=== PATIENT | male | born 1955 | race Caucasian/White ===

== ENCOUNTER 2018-10-20 17:05 | Emergency (ER) | payer SELFPAY ==
[2018-10-20 17:07] VITALS: BP 140/100; PULSE 80; RESP 16; TEMP 37; O2SAT 94; BMI 28.7
[2018-10-20 17:12] VITALS: O2SAT 97
--- NOTE | 2018-10-20 17:36 | EKG12_ITS ---
Test Reason : SOB Blood Pressure : / mmHG Vent. Rate : 073 BPM Atrial Rate : 073 BPM P-R Int : 172 ms QRS Dur : 092 ms QT Int : 388 ms P-R-T Axes : 039 092 052 degrees QTc Int : 427 ms Normal sinus rhythm Rightward axis Anteroseptal infarct , age undetermined Abnormal ECG Confirmed by KOSTAS TELLEZ, SARA ([id number]), editor farm journal SANDRA VOGT ([id number]) on 10/23/2018 8:32:32 AM Referred By: SINA/ALEK Confirmed By:SARA KENYON MD
--- NOTE | 2018-10-20 17:40 | RAD_ITS ---
STUDY: X-RAY CHEST REASON FOR EXAM: Male, 63 years old. Shortness of breath and cough x3 days TECHNIQUE: Single AP portable view of the chest. COMPARISON: None. FINDINGS: EKG leads overlie the chest. Stable appearance of a left subclavian pacemaker The lungs are clear and expanded. There is no demonstrated pleural abnormality. Normal size heart. Normal mediastinum and antony. Normal visualized pulmonary arteries. Normal visualized aortic arch and descending thoracic aorta. Normal visualized thoracic spine. Normal visualized ribs, clavicles, and shoulders. There is no demonstrated abnormality of the visualized soft tissue structures of the upper abdomen. RAD/Chest 1 View (Portable) IMPRESSION: No acute pulmonary process Electronically Signed: Favio Dubon MD at 18:08 EST , Service support ,
--- NOTE | 2018-10-20 17:54 | NURSING ---
NO OLD EKGS
[2018-10-20] MEDS: Ipratropium/Albuterol Sulfate 3 ML AMPUL.NEB INHALATION (18:05)
[2018-10-20 18:07] VITALS: PULSE 79; RESP 16; O2SAT 97
[2018-10-20 18:08] LABS: Absolute Lymphocyte Count 1.02 X10^3/ul (0.83-4.51); Absolute Neutrophil Count 2.7 X10^3/uL (2.0-7.7); Basophil# 0.01 X10^3/uL; Basophil% 0.2 % (0-1); Eosinophil# 0.02 X10^3/uL; Eosinophils% 0.5 % (0-5); Hematocrit 46.1 % (40-54); Hemoglobin 16.1 g/dl (13.0-16.5); Lymphocyte # 1.02 X10^3/ul (4.0); Lymphocyte % 23.1 % (19-41); Mean Corp Hgb Conc 34.9 g/gl (32-36); Mean Corpuscular Hgb 31.3 pg (27.0-32.0); Mean Corpuscular Volume 89.7 fL (80-94); Mean Platelet Vol. 9.4 fl (6.2-12.0); Monocyte# 0.62 X10^3/uL; Monocyte% 14.1 % (0-10); Neutrophil # 2.73 X10^3/uL (2.7-7.7); Neutrophil % 61.9 % (47-70); POSITIVE COUNT NO; POSITIVE DIFFERENTIAL NO; POSITIVE MORPHOLOGY NO; Platelet Count 127 K/mm3 (150-450); RBC Distribution Width CV 12.8 % (11.6-14.6); RBC Distribution Width SD 41.4 fl (35.1-43.9); Red Blood Count 5.14 M/mm3 (4.6-6.2); White Blood Count 4.4 K/mm3 (4.4-11.0)
[2018-10-20] MEDS: 0.9% Normal Saline 1,000 ML 150 ML IV (18:10)
[2018-10-20] MEDS: MethylPREDNISolone 125 MG/2 ML Vial IV (18:10)
[2018-10-20 18:17] VITALS: O2SAT 93
[2018-10-20 18:23] LABS: Anion Gap 7 (5-15); BUN 26 mg/dL (7-18); BUN/Creat Ratio 14.9 RATIO (10-20); Calcium,Total 8.2 mg/dL (8.5-10.1); Chloride 102 mmol/L (98-107); Creatinine, Serum 1.74 mg/dL (0.70-1.30); EST Glomerular Filtration Rate 42 mL/min (>60); Est Glom Filt Rate - Afr Amer 51 mL/min (>60); Estimated Creatinine Clearance 45.45 ml/min; Glucose 250 mg/dL (74-106); Potassium 4.4 mmol/L (3.5-5.1); Sodium Level 134 mmol/L (136-145)
[2018-10-20 18:29] LABS: Lactic Acid 1.6 mmol/L (0.4-2.0)
[2018-10-20 18:32] LABS: D-Dimer Quantitative (DVT/PE) < 0.27 FEU/ug/m (0.27-0.49)
--- NOTE | 2018-10-20 18:49 | ED.DCSUM_ITS ---
- ER Visit Summary Date of Service: 10/20/18 Chief Complaint: [Shortness of breath and concern for pneumonia] History of Present Illness: The patient is a 63 M [presents to the emergency department complaint of shortness of breath for about a week. Patient planes of a cough with green sputum. Patient denies any fevers. He denies any chest pain. He does describe some tightness in his chest. Patient states that he was seen in urgent care and referred to the ER for concern over pneumonia. Patient does complain of exertional dyspnea. Patient has a history of prior KS, COPD, diabetes, and peripheral vascular disease. Patient does have history of pacer and defibrillator placed. Patient denies any fevers. He denies any recent travel or surgery.] Physical Examination: [HEENT-PERRLA, EOMI. Cranial nerves II through XII grossly intact. TMs clear. Mucous membranes moist. No adenopathy. Cardiovascular-regular rate and rhythm without murmur or ectopy Lungs-minutes breath sounds bilaterally. Patient has diffuse expiratory wheezes noted. No accessory muscle use or retractions. Abdomen-normoactive bowel sounds, soft, nontender, no rebound or rigidity, no peritoneal signs. Extremities-intact ?4, normal range of motion, normal pulses, atraumatic] Test Results: [EKG obtained showed sinus rhythm with a ventricular rate of 73 bpm with old anterior septal infarct noted. CBC with differential showing a 4.4, hemoglobin 16, hematocrit 46, platelets 127. Chemistries unremarkable. T1 was 26 and creatinine 1.74. Troponin was 0.028. D-dimer was less than 0.27. Chest x-ray showed nothing acute.] Emergency Department Course and Treatment: [Patient was given a DuoNeb aerosol as well as Solu-Medrol 125 mill grams IV. Patient was given a dose of doxycycline.] Patient ambulated in the department and pulse ox did not drop below 92%. Clinically he is feeling much improved. Treatment Plan: [Patient will be given a prescription for prednisone, doxycycline, and dispensed an albuterol MDI.] Disposition: [Discharged home in stable condition. Patient advised to return if increasing shortness of breath or condition should worsen anyway.] Impression: [Asthmatic bronchitis/COPD exacerbation] This note was generated with [employer] dictation software. It may contain incorrect words, spelling, and punctuation that were not noted in review of the chart prior to signing ED Disposition - Plan for ED Patient: Referrals: Siddhartha Marmolejo DO [Primary Care Provider] -
[2018-10-20 19:02] VITALS: O2SAT 93
--- NOTE | 2018-10-20 19:03 | ED.DEP ---
ED Disposition - Plan for ED Patient: Instructions: ED COPD Flare, ED Bronchitis Asthmatic Prescriptions: Doxycycline 100 mg PO BID #20 cap Prednisone [Deltasone] 20 mg PO BID #10 tab Referrals: Siddhartha Marmolejo DO [Primary Care Provider] - 3-5 Days
[2018-10-20 19:10] VITALS: BP 144/98; PULSE 98; RESP 18; O2SAT 93
[2018-10-20] MEDS: Doxycycline 100 MG CAPSULE PO (19:14)
== END 2018-10-20 19:15 | disposition home or self-care (01) ==
LOC: ED 18:25
PROVIDERS: Emergency Provider Emergency Medicine; Family Provider Preventive Medicine Occupational Medicine; PCP Preventive Medicine Occupational Medicine
DX: J44.1 Chronic obstructive pulmonary disease with (acute) exacerbation (principal); E11.9 Type 2 diabetes mellitus without complications; I73.9 Peripheral vascular disease, unspecified; Z79.82 Long term (current) use of aspirin; I25.2 Old myocardial infarction; Z95.810 Presence of automatic (implantable) cardiac defibrillator
CPT/HCPCS: 71045; 80048; 83605; 84484; 85025; 85379; 87804; 93005; 94640; 96361; 96374; 99285; J7030; A4216

== ENCOUNTER 2021-06-24 23:13 | Emergency (ER) | payer MEDICARE, SELFPAY ==
[2021-06-24 23:15] VITALS: BP 103/67; PULSE 75; RESP 18; TEMP 36.6; O2SAT 98; BMI 28.0
--- NOTE | 2021-06-24 23:25 | RAD_ITS ---
STUDY: X-RAY CHEST REASON FOR EXAM: Male, 66 years old. syncope TECHNIQUE: AP portable COMPARISON: 10/20/2018 FINDINGS: AICD is present from a left subclavian approach. The lungs are clear and expanded. There is no demonstrated pleural abnormality. Normal size heart. Normal mediastinum and antony. Normal visualized pulmonary arteries. Normal visualized aortic arch and descending thoracic aorta. Normal visualized thoracic spine. Normal visualized ribs, clavicles, and shoulders. There is no demonstrated abnormality of the visualized soft tissue structures of the upper abdomen. RAD/Chest 1 View (Portable) IMPRESSION: Negative x-ray examination of the chest. No interval change. Electronically Signed: Bret Francis MD at 0:08 EDT Tel , Service support ,
--- NOTE | 2021-06-24 23:25 | EKG12_ITS ---
Test Reason : SYNCOPE Blood Pressure : / mmHG Vent. Rate : 069 BPM Atrial Rate : 069 BPM P-R Int : 230 ms QRS Dur : 100 ms QT Int : 402 ms P-R-T Axes : 021 073 076 degrees QTc Int : 430 ms Sinus rhythm with 1st degree A-V block Anteroseptal infarct , age undetermined Abnormal ECG Confirmed by KOSTAS TELLEZ, SARA ([id number]), tape editor PATI ZUÑIGA ([id number]) on 06/26/2021 9:22:05 AM Referred By: WILMA Confirmed By:SARA KENYON MD
--- NOTE | 2021-06-24 23:27 | EX.ED.DYSGE1 ---
HPI History of Present Illness Chief Complaint: Syncope Narrative Narrative: 66-year-old male presenting with an episode of near syncope. Patient states that he was watching a football game and had a couple of beers. He states he was sitting for about 45 minutes in a chair. He stood up and started to feel lightheaded. He became off balance and fell into a chair. He says he urinated on himself. He denies head injury or LOC. Patient denies any symptoms prior to this episode. He has not had chest pain or shortness of breath. He denies fever or chills. He had been otherwise eating and drinking normally. He states that he is active and tries to walk a lot. Patient has history of hypertension, [place], hyperlipidemia. He is on Coumadin and denies black or bloody stools. [facility] Medical History STEMI (ST elevation myocardial infarction) Home Medications aspirin 81 mg PO DAILY@0800 10/20/18 [History Last Taken Unknown] allopurinol 100 mg PO DAILY 06/24/21 [History Last Taken Unknown] atorvastatin 80 mg PO DAILY 06/24/21 [History Last Taken Unknown] dulaglutide [Trulicity] 1.5 mg SUBCUT QWEEK 06/24/21 [History Last Taken Unknown] gabapentin 600 mg PO BID 06/24/21 [History Last Taken Unknown] metoprolol succinate 25 mg PO DAILY 06/24/21 [History Last Taken Unknown] warfarin 2.5 mg PO DAILY 06/24/21 [History Last Taken Unknown] Allergy/AdvReac Type Severity Reaction Status Date / Time No Known Allergies Allergy Verified 06/24/21 23:17 Social History Smoking Status: Former smoker ROS ROS ED Constitutional Constitutional ED: Denies chills or fever(s) Eyes Eyes: Denies blurry vision or change in vision ENT ENT ED: Denies rhinorrhea or sore throat Cardiovascular Cardiovascular: Reports other Details: Near syncope ; Denies chest pain or palpitations Respiratory/Chest Respiratory/Chest: Denies cough or dyspnea Gastrointestinal Gastrointestinal: Denies abdominal pain or nausea Genitourinary Genitourinary ED: Denies dysuria or hematuria Musculoskeletal Musculoskeletal: Denies arthralgias, back pain, myalgias or neck pain Integumentary Denies Abrasions or rash Neurologic Neurologic: Denies headache(s) or paresthesias EXAM Physical Exam Const Vital Signs: 06/24/21 23:15 06/24/21 23:22 06/24/21 23:31 Temperature 97.8 F Temperature Source Temporal Pulse Rate 75 Pulse Rate [Lying] Pulse Rate [Sitting] Pulse Rate [Standing] Respiratory Rate 18 Respiratory Pattern Normal Blood Pressure 103/67 Blood Pressure [Lying] Blood Pressure [Sitting] Blood Pressure [Standing] Blood Pressure Mean 79 Blood Pressure Mean [Lying] Blood Pressure Mean [Sitting] Blood Pressure Mean [Standing] Pulse Ox 98 94 Oxygen Delivery Method Room Air 06/24/21 23:59 Temperature Temperature Source Pulse Rate Pulse Rate [Lying] 71 Pulse Rate [Sitting] 74 Pulse Rate [Standing] 76 Respiratory Rate Respiratory Pattern Blood Pressure Blood Pressure [Lying] 92/61 Blood Pressure [Sitting] 102/65 Blood Pressure [Standing] 99/65 Blood Pressure Mean Blood Pressure Mean [Lying] 71 Blood Pressure Mean [Sitting] 77 Blood Pressure Mean [Standing] 76 Pulse Ox Oxygen Delivery Method Positive well nourished General Appearance ED: NAD; Negative for pallor HEENT Reports moist mucous membranes Negative for trauma Eyes PERRL and EOMs intact bilaterally Chest Wall inspection of chest normal and palpation of chest normal Resp normal respiratory effort and clear to auscultation bilaterally Cardio regular rate and regular rhythm GI normal to inspection, nondistended, normoactive bowel sounds Extremity normal to inspection General Extremety ED: Negative for edema or tenderness General Extremity: Negative for edema Neuro oriented x3, CN's II-XII intact bilaterally and no sensory deficits noted Sensorium / Orientation: alert Motor Exam: strength 5/5 throughout Psych mental status grossly normal Skin General Skin Exam: Negative for jaundice or pallor MDM MDM MDM Narrative Medical decision making narrative: Patient presenting with near syncopal episode. He is alert and awake here. He did not lose consciousness completely but did lose his bladder. He has not had this symptom before. He does state that he had an episode of syncope a couple years ago and was not evaluated. Patient's EKG on my interpretation shows a sinus rhythm with first-degree AV block without sign of ischemic change at a rate of 69 bpm. Chest x-ray shows no acute cardiopulmonary process and the radiologist does agree. Patient has no focal neurologic deficits or lateralizing signs or symptoms I do not believe needs a head CT. In addition to this he did not hit his head. CBC shows his white blood cell count is 5.6, he will 14.4, hematocrit 41.6, platelets 155. INR is therapeutic at 2.5. Creatinine is elevated at 2.32 with a baseline of 1.74 however this was in October 2018. Troponin is negative.Patient is not orthostatic. Patient was given a liter of IV fluids. He feels well at this point and he is ambulatory. I discussed the case with Dr. Jean his primary care physician and he wants him to call the office to make an appointment for follow-up on his kidney function. I did ask him if he wants me to have him hold his Toprol as his blood pressure is on the lower side here today but he does not want to hold it. He will see him in office. Patient was counseled to hydrate well. If he has new or worsening symptoms of concern he should return to the ED for repeat evaluation. Impression: 1. Near syncope 2. Acute kidney injury 3. Dehydration Lab Data Attestation: I reviewed the patient's lab results. Labs: Laboratory Results - last 24 hr 06/24/21 06/24/21 06/24/21 23:24 23:24 23:24 WBC 5.6 RBC 4.58 L Hgb 14.4 Hct 41.6 MCV 90.8 MCH 31.4 MCHC 34.6 RDW Std Deviation 45.3 H RDW Coeff of Halina 13.7 Plt Count 155 MPV 9.7 Immature Gran % (Auto) 0.400 Neut % (Auto) 60.6 Lymph % (Auto) 23.9 Dougherty % (Auto) 11.1 H Eos % (Auto) 3.6 Baso % (Auto) 0.4 Absolute Neuts (auto) 3.4 Absolute Lymphs (auto) 1.33 Nucleated RBC % 0 PT 26.2 H INR 2.5 Sodium 138 Potassium 3.6 Chloride 104 Carbon Dioxide 24.0 Anion Gap 10 BUN 51 H Creatinine 2.32 H Estim Creat Clear Calc 32.78 Est GFR (MDRD) Af Amer 37 L Est GFR (MDRD) Non-Af 30 L BUN/Creatinine Ratio 22.0 H Glucose 197 H Calcium 8.8 Troponin I High Sens 15 Ethyl Alcohol 06/24/21 23:24 WBC RBC Hgb Hct MCV MCH MCHC RDW Std Deviation RDW Coeff of Halina Plt Count MPV Immature Gran % (Auto) Neut % (Auto) Lymph % (Auto) Dougherty % (Auto) Eos % (Auto) Baso % (Auto) Absolute Neuts (auto) Absolute Lymphs (auto) Nucleated RBC % PT INR Sodium Potassium Chloride Carbon Dioxide Anion Gap BUN Creatinine Estim Creat Clear Calc Est GFR (MDRD) Af Amer Est GFR (MDRD) Non-Af BUN/Creatinine Ratio Glucose Calcium Troponin I High Sens Ethyl Alcohol < 3.0 Radiography Diagnostic Testing: Clinical Impression(s) from Imaging Studies Chest X-Ray 06/24/21 23:25 IMPRESSION: Negative x-ray examination of the chest. No interval change. Electronically Signed: Bret Francis MD at 0:08 EDT Tel , Service support , Discharge Plan Triage Chief Complaint: Syncope ED Provider: Bola Ang Dx/Rx/DC Orders Instructions: ED Dehydration (Adult), ED Near-Fainting, Uncertain Cause Prescriptions: No Action aspirin 81 MG tablet,chewable 81 mg PO DAILY@0800 RF: 0 atorvastatin 80 mg tablet 80 mg PO DAILY RF: 0 gabapentin 600 mg tablet 600 mg PO BID RF: 0 allopurinol 100 mg tablet 100 mg PO DAILY RF: 0 warfarin 5 mg tablet 2.5 mg PO DAILY RF: 0 metoprolol succinate 25 mg tablet extended release 24 hr 25 mg PO DAILY RF: 0 Trulicity 1.5 mg/0.5 mL pen injector 1.5 mg SUBCUT QWEEK RF: 0 Primary Care Provider: Siddhartha Marmolejo Referrals: Siddhartha Marmolejo DO [Primary Care Provider] - Disposition Disposition: Home, Self Care
[2021-06-24 23:31] VITALS: O2SAT 94
[2021-06-24] MEDS: 0.9% Normal Saline 1,000 ML 999 ML IV (23:35)
[2021-06-24 23:36] LABS: Absolute Lymphocyte Count 1.33 X10^3/uL (0.83-4.51); Absolute Neutrophil Count 3.4 X10^3/uL (2.0-7.7); Basophil# 0.02 X10^3/uL; Basophil% 0.4 % (0-1); Eosinophils% 3.6 % (0-5); Hematocrit 41.6 % (40-54); Hemoglobin 14.4 g/dL (13.0-16.5); Lymphocyte # 1.33 X10^3/ul (0.83-4.51); Lymphocyte % 23.9 % (19-41); Mean Corp Hgb Conc 34.6 g/dL (32-36); Mean Corpuscular Hgb 31.4 pg (27.0-32.0); Mean Corpuscular Volume 90.8 fL (80-94); Mean Platelet Vol. 9.7 fl (6.2-12.0); Monocyte# 0.62 X10^3/uL; Monocyte% 11.1 % (0-10); NRBC Flagged by Analyzer 0 % (0-5); Neutrophil # 3.38 X10^3/uL (2.7-7.7); Neutrophil % 60.6 % (47-70); Platelet Count 155 K/mm3 (150-450); RBC Distribution Width CV 13.7 % (11.6-14.6); RBC Distribution Width SD 45.3 fl (35.1-43.9); Red Blood Count 4.58 M/mm3 (4.6-6.2); White Blood Count 5.6 K/mm3 (4.4-11.0)
[2021-06-24 23:54] LABS: Anion Gap 10 (5-15); BUN 51 mg/dL (7-18); Calcium,Total 8.8 mg/dL (8.5-10.1); Chloride 104 mmol/L (98-107); Creatinine, Serum 2.32 mg/dL (0.70-1.30); EST Glomerular Filtration Rate 30 mL/min (>60); Est Glom Filt Rate - Afr Amer 37 mL/min (>60); Estimated Creatinine Clearance 32.78 ml/min; Glucose 197 mg/dL (74-106); Potassium 3.6 mmol/L (3.5-5.1); Sodium Level 138 mmol/L (136-145); Troponin-I HS 15 pg/mL (3.0-78.0)
[2021-06-24 23:56] LABS: International Normalized Ratio 2.5; Prothrombin Time (Protime)PT. 26.2 SECONDS (11.7-14.9)
[2021-06-24 23:59] VITALS: BP 102/65; BP 92/61; BP 99/65; PULSE 71; PULSE 74; PULSE 76
[2021-06-25 00:12] LABS: Alcohol, Blood (Medical)-Serum < 3.0 mg/dL
[2021-06-25 01:24] VITALS: BP 106/69; PULSE 74; RESP 16; O2SAT 94
[2021-06-25 01:39] VITALS: BP 109/69; PULSE 72; RESP 16; O2SAT 99
== END 2021-06-25 01:39 | disposition home or self-care (01) ==
PROVIDERS: Emergency Provider Student in an Organized Health Care Education/Training Program; PCP Preventive Medicine Occupational Medicine
DX: R55 Syncope and collapse (principal); N17.9 Acute kidney failure, unspecified; E86.0 Dehydration; I10 Essential (primary) hypertension; E78.5 Hyperlipidemia, unspecified; Z79.01 Long term (current) use of anticoagulants; Z79.82 Long term (current) use of aspirin; Z79.899 Other long term (current) drug therapy; I25.2 Old myocardial infarction; Z87.891 Personal history of nicotine dependence
CPT/HCPCS: 71045; 80048; 82077; 84484; 85025; 85610; 93005; 96360; 96361; 99285; J7030; A4216